=== PATIENT | female | born 1965 | race Caucasian/White ===

== ENCOUNTER 2017-01-02 22:05 | Inpatient (IN) | payer OTHER ==
[~2017-01-02] VITALS: Ht 167.6 cm; Wt 82.6 kg
[~2017-01-02 22:05] MED LIST: BACTRIM,SEPT1 TABLET PO; BENADRYL50 MG PO; DITROPAN XL15 MG PO; DUEXIS 800-26.1 EACH PO; IRON325 M1 PO; MOTRIN400 MG PO; NAPROSYN250 MG PO; PERCOCET 5/31 TABLET PO; TOPROL XL50 MG PO
[2017-01-03] MEDS ORDERED: CALCIUM 600 +1 EAC4 PO (07:48)
[2017-01-03] MEDS ORDERED: [UNRECOGNIZED DRUG - OTHER] PO (07:52)
[2017-01-03 07:57] LABS: PTT 28.1 SEC (25-37)
[2017-01-03 08:01] VITALS: BP 177/97
[2017-01-03 12:12] LABS: HEMATOCRIT 36.4 % (36.0-46.0); MCV 91.5 FL (83-99)
[2017-01-03 13:20] VITALS: BP 125/65
[2017-01-03 15:51] VITALS: BP 127/75
[2017-01-03 20:04] VITALS: BP 110/66
[2017-01-04 00:30] VITALS: BP 109/62
[2017-01-04 04:06] VITALS: BP 113/63; BP 135/70
[2017-01-04 07:44] VITALS: BP 111/63
[2017-01-04] MEDS ORDERED: TYLENOL REGULA325 MG PO (10:48)
[2017-01-04] MEDS ORDERED: BISAC-EVAC10 MG PR (10:49)
[2017-01-04] MEDS ORDERED: OXYCODONE HCL5 MG PO (10:50)
[2017-01-04] MEDS ORDERED: ELIQUIS2.5 MG PO (10:50)
[2017-01-04 11:35] VITALS: BP 121/64
[2017-01-04 11:48] LABS: HEMATOCRIT 34.6 % (36.0-46.0)
[2017-01-04 15:47] VITALS: BP 121/68
== END 2017-01-04 16:15 | DRG 470 ==
LOC: ENRESERV 22:05 → 2SOUTH 01-03 07:04 → 3WEST 01-03 12:57 → 2SOUTH 01-03 13:28 → 3WEST 01-04 16:15
PROVIDERS: Orthopaedic Surgery
PROC: 0SRB02A Replacement of Left Hip Joint with Metal on Polyethylene Synthetic Substitute, Uncemented, Open Approach (ICD-10-PCS; principal; 2017-01-03)
DX: M16.12 Unilateral primary osteoarthritis, left hip (principal); Q65.89 Other specified congenital deformities of hip
CPT/HCPCS: 85014; 85018; 85610; 85730; 86850; 86900; 86901; J0690; J1100; J1885; J2175; J2250; J2405; J3010; J7050; J7120; Q0175; S0020